=== PATIENT | male | born 1935 | race Caucasian/White ===

== ENCOUNTER → 2016-08-29 | Day surgery (SDC) | payer OTHER ==
[~2016-08-29] VITALS: Ht 175.3 cm; Wt 95.3 kg
[~2016-08-29] MED LIST: DEXAMETHASONE SOD PHOS 10MG/1ML VIAL INJ ONE; GLYCOPYRROLATE 0.2 MG/ML 1ML VIAL ONE; LIDOCAINE 2% JELLY 11ml (GLYDO) ONE; LIDOCAINE HCL 2 %PF INJ 10ML AMP IJ ONE; MIDAZOLAM HCL 1MG/1ML-2 ML VIAL ONE; ONDANSETRON HCL 4 MG/2 ML VIAL IV ONE; ONDANSETRON HCL 4 MG/2 ML VIAL ONE; PROPOFOL 10 MG/ML 20 ML IV ONE; ceFAZolin 1GM/50ML D5W 50 ML IV ONE; fentaNYL CITRATE 100 MCG/2 ML VL ONE
[2016-08-29] MEDS: HYDROmorphone HCL 2 MG/ML VL IV PRN ×2 (08:29→08:39)
[2016-08-29 09:15] VITALS: BP 141/85
== END | disposition home or self-care (01) ==
LOC: SUR 06:35
PROVIDERS: ATTEND Urology
DX: N32.0 Bladder-neck obstruction (principal); J43.9 Emphysema, unspecified; J44.9 Chronic obstructive pulmonary disease, unspecified; I10 Essential (primary) hypertension; K21.9 Gastro-esophageal reflux disease without esophagitis; I11.9 Hypertensive heart disease without heart failure; E78.2 Mixed hyperlipidemia; Z90.49 Acquired absence of other specified parts of digestive tract
CPT/HCPCS: 52276; C1769; J0690; J1100; J1170; J2250; J2405; J2704; J3010

== ENCOUNTER 2017-05-08 06:06 | Day surgery (SDC) | payer OTHER ==
[~2017-05-08] VITALS: Ht 1 cm; Wt 0.5 kg
[2017-05-08] MEDS ORDERED: LIDOCAINE 2% JELLY 11ml (GLYDO) ONE ×2 (06:58→16:32)
[2017-05-08] MEDS ORDERED: ceFAZolin 1GM/50ML D5W 50 ML IV ONE (07:00)
[2017-05-08] MEDS ORDERED: POTASSIUM CHL 20MEQ/100ML 100 ML IV ONE ×3 (09:04→12:44)
[2017-05-08] MEDS ORDERED: fentaNYL CITRATE 100 MCG/2 ML VL ONE (16:45)
[2017-05-08] MEDS ORDERED: hydrALAZINE HCL 20 MG/ML VL IV PRN (17:15)
[2017-05-08] MEDS ORDERED: ONDANSETRON HCL 4 MG/2 ML VIAL IV ONE (17:15)
[2017-05-08] MEDS ORDERED: ePHEDrine SULFATE 50 MG/ML AMP IV PRN (17:15)
[2017-05-08 17:59] VITALS: BP 133/76
[2017-05-08] MEDS ORDERED: fentaNYL CITRATE 100 MCG/2 ML VL IV ONE (18:00)
== END 2017-05-08 10:20 | disposition home or self-care (01) ==
LOC: SUR 06:06
PROVIDERS: ATTEND Urology
DX: N35.9 Urethral stricture, unspecified (principal); J44.9 Chronic obstructive pulmonary disease, unspecified; E78.00 Pure hypercholesterolemia, unspecified; K21.9 Gastro-esophageal reflux disease without esophagitis; Z90.49 Acquired absence of other specified parts of digestive tract; J43.9 Emphysema, unspecified; E78.5 Hyperlipidemia, unspecified; I11.9 Hypertensive heart disease without heart failure
CPT/HCPCS: 36415; 52276; 84132; J0690; J3010; J3480